=== PATIENT | female | born 1965 | race Caucasian/White ===

== ENCOUNTER 2018-07-21 16:21 | Emergency (ER) | payer BC, OTHER ==
--- NOTE | 2018-07-21 16:39 | PDOC ---
Rapid Medical Evaluation Chief Complaint: Back Pain Time Seen by Provider: 07/21/18 16:32 Medical Evaluation: Allergies Allergy/AdvReac Type Severity Reaction Status Date / Time No Known Allergies Allergy Verified 07/21/18 16:32 12 16:32 I have performed a brief in-person evaluation of this patient. The patient presents with a chief complaint of:right low back/ flank Pertinent physical exam findings: pain with CVAT right , abd soft I have ordered the following: IV, CBC, CMP, UA/ UrineCx The patient will proceed to the ED for further evaluation. 07/21/18 16:34 07/21/18 16:36 Discharge Disposition - Referrals Referrals: Lisa Conley MD [Primary Care Provider] - - Patient Instructions - Post Discharge Activity
[2018-07-21 16:41] VITALS: BP 128/68; PULSE 78; TEMP 98.3; BMI 46.3
--- NOTE | 2018-07-21 16:57 | PDOC ---
Attending Attestation - Resident Resident Name: Sabine Munoz - ED Attending Attestation I have performed the following: I have examined & evaluated the patient, The case was reviewed & discussed with the resident, I agree w/resident's findings & plan, Exceptions are as noted - HPI HPI: 07/21/18 17:42 53 o - Physicial Exam PE: 07/21/18 17:42 53 yo female p/w right flank pain.several days of increased frequency 07/21/18 18:19 wnwd 53 yo female in no acute distress head ncat neck supple lungs cta b/l cvs [id number] abd no rebound,no guarding,+BS right flank tenderness extremities no deformities skin warm and dry neuro axox3,ambulatory psych appropriate - Medical Decision Making 07/21/18 19:47 ct scan of abd/pel reveals mild right hydronephrosis,calculi in bladder UA revels hematuria and also wbcs imp kidney stones/UTI pt is able to take po medications,no vomiting labs reviewed, no leukocytosis renal function wnl plan- place on TEN days of antibiotics and follow up with her PCP
[2018-07-21] MEDS ORDERED: KETOROLAC TROMETHAMINE 30 MG/1 ML VIAL IVPUSH ONE ×2 (16:58→19:58)
[2018-07-21] MEDS ORDERED: SODIUM CHLORIDE 1,000 ML IV STA (16:58)
--- NOTE | 2018-07-21 17:01 | PDOC ---
History of Present Illness - General Chief Complaint: Pain, Acute Stated Complaint: BACK PAIN Time Seen by Provider: 07/21/18 16:32 History Source: Patient Exam Limitations: No Limitations - History of Present Illness Initial Comments: 07/21/18 16:58 Pt is a 53yo F with PMH of HTN presenting to ED with R sided flank pain x 1 day. Pt said pain started suddenly today when she was at work. She says she thinks she may have had a UTI for the past 5 days because she has been having dysuria and urinary frequency. She has been drinking cranberry juice and says that she thinks the UTI has "gone down". She has had kidney stones in the past. She denies hematuria, abdominal pain, chest pain, SOB, diarrhea, constipation, vomiting, weakness, numbness, tingling. She endorses chills and nausea. LMP 2 years ago. PMD: Fide PMH: htn PSH: L knee Meds: metoprolol Allergies: nkda Past History - Past Medical History Allergies/Adverse Reactions: Allergies Allergy/AdvReac Type Severity Reaction Status Date / Time No Known Allergies Allergy Verified 07/21/18 16:32 Home Medications: Ambulatory Orders Acetaminophen [Tylenol] 650 mg PO Q4H PRN 05/23/16 Ibuprofen [Motrin -] 600 mg PO TID PRN 05/23/16 Metoprolol Tartrate 50 mg PO HS #0 tablet 05/29/16 Cephalexin Monohydrate [Keflex -] 500 mg PO BID #20 capsule 07/21/18 Anemia: Yes (INTERMITTENTLY) Asthma: No Cancer: No Cardiac Disorders: No CVA: No COPD: No CHF: No Dementia: No Diabetes: No (BORDERLINE-DIET CONTROLLED) GI Disorders: Yes (REFLUX) Disorders: No HTN: Yes (DX RECENT-09/2015) Hypercholesterolemia: No Kidney Stones: Yes Liver Disease: No Seizures: No Thyroid Disease: No - Surgical History Abdominal Surgery: No Appendectomy: No Cardiac Surgery: No Lung Surgery: No Neurologic Surgery: No Orthopedic Surgery: Yes (rt TKR) - Immunization History Immunization Up to Date: Yes - Suicide/Smoking/Psychosocial Hx Smoking Status: Yes Smoking History: Never smoked Have you smoked in the past 12 months: Yes Number of Cigarettes Smoked Daily: 5 If you are a former smoker, when did you quit?: 2.5yrs ago Cigars Per Day: 0 Information on smoking cessation initiated: No 'Breaking Loose' booklet given: 04/15/16 Hx Alcohol Use: No Drug/Substance Use Hx: No Substance Use Type: None Hx Substance Use Treatment: No *Physical Exam - Vital Signs Last Vital Signs Temp Pulse Resp BP Pulse Ox 98.3 F 78 20 128/68 98 07/21/18 16:33 07/21/18 16:33 07/21/18 16:33 07/21/18 16:33 07/21/18 16:33 - Physical Exam Musculoskeletal: positive: CVA Tenderness (R) Moderate Sedation - Procedure Monitoring Vital Signs: Procedure Monitoring Vital Signs Temperature 98.3 F 07/21/18 16:33 Pulse Rate 78 07/21/18 16:33 Respiratory Rate 20 07/21/18 16:33 Blood Pressure 128/68 07/21/18 16:33 O2 Sat by Pulse Oximetry (%) 98 07/21/18 16:33 ED Treatment Course - LABORATORY CBC & Chemistry Diagram: 07/21/18 17:44 07/21/18 17:44 *DC/Admit/Observation/Transfer Diagnosis at time of Disposition: Stone, bladder UTI (urinary tract infection) Qualifiers: Urinary tract infection type: site unspecified Hematuria presence: with hematuria Qualified Code(s): N39.0 - Urinary tract infection, site not specified ; R31.9 - Hematuria, unspecified - Discharge Dispostion Disposition: HOME Condition at time of disposition: Improved - Prescriptions Prescriptions: Cephalexin Monohydrate [Keflex -] 500 mg PO BID #20 capsule - Referrals Referrals: Lisa Conley MD [Primary Care Provider] - Juan Ramos MD [Staff Physician] - - Patient Instructions Printed Discharge Instructions: DI for Urinary Tract Infection (UTI) Additional Instructions: You were seen here today for back pain. The urine test shows that you have an infection and the CT scan showed that you have a stone that has passed and is now in the bladder. I have sent a prescription for an antibiotic called Keflex (cephalexin) for you to take twice a day for 10 days. Please make an appointment with your primary care doctor within the next few days. You can take ibuprofen for pain if needed. You can also make an appointment with a urologist if you continue to have these symptoms or if they get worse. You can call Dr. Ramos . Come back to the emergency room if pain gets worse, you have blood in the urine , you start vomiting, you have fever, or if any new concerning symptom develops. Thank you - Post Discharge Activity
[2018-07-21] MEDS ORDERED: KETOROLAC TROMETHAMINE 30 MG/1 ML VIAL ONE (17:30)
[2018-07-21 17:51] LABS: BASO % 0.5 % (0-2.0); EOS % 1.7 % (0-4.5); HEMATOCRIT 34.5 % (32.4-45.2); LYMPH % 20.2 % (8-40); MCH 32.1 pg (25.7-33.7); MCHC 34.8 g/dl (32.0-36.0); MEAN CELL VOLUME 92.3 fl (80-96); MEAN PLT VOLUME 9.2 fl (7.5-11.1); MONO % 7.9 % (3.8-10.2); NEUT % 69.7 % (42.8-82.8); PLATELET COUNT 328 K/MM3 (134-434); RBC 3.73 M/mm3 (3.60-5.2); RDW 13.6 % (11.6-15.6); WHITE BLOOD COUNT 9.4 K/mm3 (4.0-10.0)
[2018-07-21 17:53] LABS: URINE APPEARANCE SLCLOUDY; URINE BILIRUBIN NEGATIVE (<2.0 mg/dL); URINE COLOR YELLOW; URINE GLUCOSE (UA) NEGATIVE (NEGATIVE); URINE KETONE NEGATIVE (NEGATIVE); URINE LEUK ESTERASE 1+ (NEGATIVE); URINE NITRITE NEGATIVE (NEGATIVE); URINE PROTEIN 1+ (NEGATIVE); URINE UROBILINOGEN NEGATIVE mg/dL (0.2-1.0)
[2018-07-21 18:02] LABS: EPI CELLS FEW /HPF (FEW); URINE BACTERIA RARE /hpf (NONE SEEN); URINE HYALINE CAST 1 /lpf; URINE MUCUS MODERATE
[2018-07-21 18:15] LABS: ALBUMIN 3.5 g/dl (3.4-5.0); ALK PHOS 111 U/L (45-117); ANION GAP 7 MMOL/L (8-16); BILIRUBIN,TOTAL 0.3 mg/dL (0.2-1); BLOOD UREA NITROGEN 13 mg/dL (7-18); CALCIUM 8.7 mg/dL (8.5-10.1); CHLORIDE 105 mmol/L (98-107); CO2 28 mmol/L (21-32); CREATININE 0.9 mg/dL (0.55-1.3); GLUCOSE,RANDOM 107 mg/dL (74-106); POTASSIUM 4.2 mmol/L (3.5-5.1); SGOT/AST 25 U/L (15-37); SGPT/ALT 26 U/L (13-61); SODIUM 141 mmol/L (136-145); TOT PROT 7.4 g/dl (6.4-8.2)
[2018-07-21] MEDS ORDERED: KETOROLAC TROMETHAMINE 15 MG/ML VIAL ONE (20:01)
== END 2018-07-21 20:09 | disposition home or self-care (01) ==
LOC: JER 16:21
PROC: 3E0333Z Introduction of Anti-inflammatory into Peripheral Vein, Percutaneous Approach (ICD-10-PCS; principal; 2018-07-21)
PROC: 3E0333Z Introduction of Anti-inflammatory into Peripheral Vein, Percutaneous Approach (ICD-10-PCS; 2018-07-21)
DX: N39.0 Urinary tract infection, site not specified (principal); N31.9 Neuromuscular dysfunction of bladder, unspecified; N21.0 Calculus in bladder; N13.2 Hydronephrosis with renal and ureteral calculous obstruction; I10 Essential (primary) hypertension; E11.9 Type 2 diabetes mellitus without complications; D64.9 Anemia, unspecified; Z96.651 Presence of right artificial knee joint
CPT/HCPCS: 36415; 74176; 80053; 81003; 81015; 85025; 87086; 99282-25; J7030